=== PATIENT | male | born 1985 | race African-American/Black ===

== ENCOUNTER 2024-07-25 11:17 | Emergency (ER) | payer OTHER ==
[~2024-07-25] VITALS: Ht 188 cm; Wt 73.0 kg
[2024-07-25 11:28] VITALS: O2SAT 99
[2024-07-25 12:00] LABS: BASOPHILS % 0.7 % (0.0-2.0); EOSINOPHILS % 1.2 % (0.0-5.0); HEMATOCRIT. 48.6 % (42.0-52.0); HEMOGLOBIN. 16.5 g/dL (14.0-18.0); LYMPHOCYTES % 29.4 % (20.0-50.0); MEAN CORPUSCULAR HEMOGLOBIN 31.9 pg (28.0-32.0); MEAN CORPUSCULAR HGB CONC 33.9 g/dL (31.0-37.0); MEAN CORPUSCULAR VOLUME 94.1 fL (80.0-94.0); MEAN PLATELET VOLUME 7.5 fl (7.4-10.4); MONOCYTES % 9.1 % (2.0-8.0); NEUTROPHILS % 59.6 % (40.0-76.0); PLATELET 241 x1000/uL (130-400); RED BLOOD CELL COUNT 5.16 mill/uL (4.7-6.1); RED CELL DISTRIBUTION WIDTH 13.8 % (11.6-14.6); WHITE BLOOD COUNT 6.8 x1000/uL (4.5-11.0)
[2024-07-25 12:07] LABS: CHLORIDE 102 mEq/L (98-107); POTASSIUM 4.2 mEq/L (3.5-5.1); SODIUM 138 mEq/L (136-145)
[2024-07-25 12:08] LABS: CARBON DIOXIDE 29 mEq/L (21-32)
[2024-07-25 12:09] LABS: CALCIUM 9.9 mg/dL (8.7-10.4)
[2024-07-25 12:13] LABS: CREATININE 1.2 mg/dL (0.6-1.3); GLUCOSE 81 mg/dL (70-105)
[2024-07-25 12:14] LABS: UREA NITROGEN BLOOD 14 mg/dL (9-23)
[2024-07-25 12:23] LABS: TROPONIN I HIGH SENSITIVITY < 4 ng/L (3.0-53)
[2024-07-25 13:00] VITALS: BP 122/80; PULSE 64; RESP 18; TEMP 37; O2SAT 99
== END 2024-07-25 13:03 | disposition home or self-care (01) ==
LOC: ER 11:17
DX: R07.89 Other chest pain (principal)
CPT/HCPCS: 80048; 85025; 85379; 84484; 36415; 71045; 93005; 99285; Z7610